=== PATIENT | male | born 1980 | race Caucasian/White ===

== ENCOUNTER 2019-12-24 14:15 | Emergency (ER) | payer OTHER, SELFPAY ==
--- NOTE | ~2019-12-24 | CT_ITS ---
EXAMINATION: CT abdomen pelvis wo con DATE: 12/24/2019 15:13 INDICATION: Right flank pain. Nausea and vomiting. TECHNIQUE: Computed tomography (CT) of the abdomen and pelvis was performed without intravenous contr ast. Automated exposure control and iterative reconstruction technique were employed. Exam dose: 105 8.76 mGy-cm total exam DLP. COMPARISON: None. FINDINGS: Small sliding hiatal hernia Hepatic steatosis. No hepatic, splenic, pancreatic or adrenal space-occupying mass lesion is evident. No renal mass lesion is detected. There is an approximately 2.5 mm right ureterovesical junction calculus with associated mild right hy droureteronephrosis and mild right perinephric stranding. There is an approximately 2.5 mm nonobstructing mid upper left renal nonobstructing calculus. No left ureteral calculus or hydroureteronephrosis. The urinary bladder, prostate gland and seminal vesicles are unremarkable. There is mild colonic diverticulosis; no CT evidence of diverticulitis. No bowel obstruction, bowel w all thickening, pneumatosis or intraperitoneal free air is detected. Normal caliber of the abdominal aorta. No intraperitoneal or retroperitoneal or pelvic mass lesion or adenopathy or ascites. Degenerative changes of the thoracic and lumbar spine including prominent degenerative disease partic ularly at L2-3 and L3-4. Transitional fifth lumbar vertebra. No suspicious osteolytic or osteoblastic lesions. IMPRESSION: 2.5 mm obstructing right ureterovesical junction calculus with mild right hydroureterone phrosis 2.5 mm nonobstructing left renal calculus Mild colonic diverticulosis Small sliding hiatal hernia Reviewed, dictated and finalized at [facility]. Reviewed, dictated and finalized at [facility]. IMPRESSION: 2.5 mm obstructing right ureterovesical junction calculus with mil d right hydroureteronephrosis 2.5 mm nonobstructing left renal calculus Mild colonic diverticulosis Small sliding hiatal hernia
[2019-12-24 14:16] VITALS: BP 170/119; PULSE 91; RESP 20; TEMP 36.8; O2SAT 100
[2019-12-24] MEDS: ONDANSETRON INJ 4 MG/2 ML VIAL IV PUSH (14:41)
[2019-12-24] MEDS: KETOROLAC 30 MG/ML VIAL (*BKC) IV PUSH (14:41)
[2019-12-24 14:49] LABS: Basophils Percent Auto 0.3 % (0.2-1.2); Eosinophils Percent Auto 0.2 % (0-4.4); Hematocrit 44.5 % (42.0-52.0); Immature Granulocyte Absolute 0.06 K/mm3 (0.00-0.031); Immature Granulocyte Percent A 0.6 % (0-0.5); Lymphocytes Absolute Auto 1.11 K/mm3 (0.9-3.2); Lymphocytes Percent Auto 10.3 % (18.3-44.2); Mean Corpuscular HGB Conc 33.7 g/dl (32-36); Mean Corpuscular Hemoglobin 28.5 pg (26-34); Mean Corpuscular Volume 84.4 fl (80-100); Mean Platelet Volume 9.9 fl (7.4-10.4); Monocytes Absolute Auto 0.5 K/mm3 (0.1-0.6); Monocytes Percent Auto 4.7 % (2.6-8.5); Neutrophils Percent Auto 83.9 % (45.5-73.1); Platelet Count Result 244 k/mm3 (150-375); Red Blood Count 5.27 M/mm3 (4.6-6.20); Red Cell Distribution Width 13.2 % (11.5-14.5); White Blood Count 10.7 K/mm3 (4.5-10.0)
[2019-12-24 14:53] LABS: Add Urine Microscopic? YES; Appearance Urine Clear (Clear); Bilirubin Urine Negative (Negative); Blood Urine 3+ (Negative); Color Urine Yellow (Yellow); Glucose Urine UA 3+ mg/dL (Negative); Ketones Urine Negative (Negative); Leukocyte Esterase Ur Negative LEU/UL (Negative); Mucus Urine Few /lpf; Nitrate Urine Negative (Negative); Protein Urine 2+ mg/dL (Negative); RBC Urine >75 /hpf (0-2); Specific Grav Ur 1.027 (1.001-1.035); Squamous Epithelial Cell Urine Rare /hpf (Few); Urobilinogen Urine Negative mg/dL (<2.0); WBC Urine 0-3 /hpf
[2019-12-24 15:00] LABS: Anion Gap 9 mmol/L (8-16); Blood Urea Nitrogen 11 mg/dL (9-20); Calcium 9.6 mg/dL (8.4-10.2); Carbon Dioxide 29 mmol/L (22-30); Chloride 99 mmol/L (98-107); Estimated Glomerular Filt Rate > 60; Glucose 249 mg/dL (75-110); Sodium 137 mmol/L (137-145)
[2019-12-24 15:07] VITALS: BP 149/92; PULSE 69; RESP 18; TEMP 36.9; O2SAT 98
--- NOTE | 2019-12-24 15:08 | PC.NURSE ---
Patient to CT at this time.
--- NOTE | 2019-12-24 15:30 | ED.NAVMDI ---
HPI - Nausea/Vomiting/Diarrhea General Chief complaint: Nausea/Vomiting/Diarrhea Stated complaint: Back pain, nausea vomiting Time Seen by Provider: 12/24/19 14:19 History of Present Illness HPI Narrative: Patient is a 39-year-old male who presents ER with right-sided flank pain. Patient had sudden onset pain as well as some nausea and vomiting. Pain is persistent since then. Mild improvement with stretching. No radiation to the abdomen or testicles. No urinary frequency urgency or dysuria. No sweats or chills. Has not had similar pain before. Concerned he may have a kidney stone. Related Data Home Medications Medication Instructions Recorded Confirmed atorvastatin 12/24/19 glipizide mg 12/24/19 meloxicam 12/24/19 metformin mg PO 12/24/19 Allergies Allergy/AdvReac Type Severity Reaction Status Date / Time No Known Allergies Allergy Verified 12/24/19 14:36 Review of Systems Review of Systems: All systems reviewed & are unremarkable except as noted in HPI and below Gastrointestinal: Gastrointestinal: Denies abdominal pain, Denies diarrhea, Reports nausea and Reports vomiting Genitourinary: Genitourinary: Denies dysuria, Denies testicular pain and Denies urinary frequency PMFSH Past Medical History Medical History (Updated 12/24/19 @ 16:57 by Samson Lucia MD) Diabetes type 2, controlled Hyperlipidemia Surgical History Surgical History (Updated 12/24/19 @ 15:32 by Samson Luica MD) Hx of tonsillectomy Family History Family History (Updated 10/05/15 @ 23:19 by DOCTOR UNKNOWN) Father Hypertension Sibling Hypertension Family history of diabetes mellitus in first degree relative Other Diabetes mellitus Family history of heart disease in male family member before age 55 Social History Social History Smoking status: Never smoker Alcohol intake: never Exam Narrative: Exam Narrative: GENERAL: Well-appearing, well-nourished, and in no acute distress. HEAD: Normocephalic, atraumatic. CHEST: Clear to auscultation. No respiratory distress. HEART: Regular rate and rhythm. Normal peripheral pulses. ABDOMEN: Soft, nontender, nondistended. BACK: No reproducible midline tenderness of thoracic or lumbar spine. There is mild paraspinal lumbar tenderness on the right. EXTREMITIES: Normal range of motion. No edema. NEURO: Alert and oriented x3. PSYCH: Normal mood and affect. Course Course Emergency Course: Pain improved with Toradol. Discharge home. Informed results. Vital Signs Vital signs: Vital Signs Temperature 98.3 F 12/24/19 14:16 Pulse Rate 91 12/24/19 14:16 Respiratory Rate 20 12/24/19 14:16 Blood Pressure 170/119 H 12/24/19 14:16 Pulse Oximetry 100 12/24/19 14:16 Temperature 98.1 F 12/24/19 16:21 Pulse Rate 87 12/24/19 16:21 Respiratory Rate 18 12/24/19 16:21 Blood Pressure 142/89 H 12/24/19 16:21 Pulse Oximetry 100 12/24/19 16:21 MDM - Nausea/Vomiting/Diarrhea Lab Data Result diagrams: 12/24/19 14:40 12/24/19 14:40 Labs: Lab Results 12/24/19 12/24/19 12/24/19 Range/Units 14:40 14:40 14:42 WBC 10.7 H (4.5-10.0) K/mm3 RBC 5.27 (4.6-6.20) M/mm3 Hgb 15.0 (14.0-18.0) g/dL Hct 44.5 (42.0-52.0) % MCV 84.4 (80-100) fl MCH 28.5 (26-34) pg MCHC 33.7 (32-36) g/dl RDW 13.2 (11.5-14.5) % Plt Count 244 (150-375) k/mm3 MPV 9.9 (7.4-10.4) fl Immature Gran % (Auto) 0.6 H (0-0.5) % Neut % (Auto) 83.9 H (45.5-73.1) % Lymph % (Auto) 10.3 L (18.3-44.2) % [place] % (Auto) 4.7 (2.6-8.5) % Eos % (Auto) 0.2 (0-4.4) % Baso % (Auto) 0.3 (0.2-1.2) % Lymph # (Auto) 1.11 (0.9-3.2) K/mm3 [place] # (Auto) 0.5 (0.1-0.6) K/mm3 Eos # (Auto) 0.0 (0-0.3) K/mm3 Baso # (Auto) 0.0 (0.0-0.1) K/mm3 Abs Immat Gran (auto) 0.06 H (0.00-0.031) K/mm3 Absolute Neuts (auto) 9.0 H (1.3-6.7) K/mm3 Absolute Nucleate
[2019-12-24 16:21] VITALS: BP 142/89; PULSE 87; RESP 18; TEMP 36.7; O2SAT 100
[2019-12-24 17:00] VITALS: BP 139/84; PULSE 75; RESP 16; TEMP 36.2; O2SAT 100
== END 2019-12-24 17:06 | disposition home or self-care (01) ==
PROVIDERS: Emergency Provider Emergency Medicine; PCP Family Medicine
DX: N13.2 Hydronephrosis with renal and ureteral calculous obstruction (principal); E11.9 Type 2 diabetes mellitus without complications; E78.5 Hyperlipidemia, unspecified; K57.90 Diverticulosis of intestine, part unspecified, without perforation or abscess without bleeding; K44.9 Diaphragmatic hernia without obstruction or gangrene; Z79.84 Long term (current) use of oral hypoglycemic drugs
CPT/HCPCS: 36415; 74176; 80048; 81001; 85025; 96374; 96375; 99284; J1885; J2405

== ENCOUNTER 2020-04-30 08:06 | Outpatient (CLI) | payer OTHER, SELFPAY ==
--- NOTE | ~2020-04-30 | XR_ITS ---
EXAMINATION: HAND-LLOYD ARTHRITIS 3+VIEWS DATE: 04/30/2020 08:38 INDICATION: Bilateral hand pain. Inability to straighten the left fifth digit. TECHNIQUE: Posteroanterior, lateral, and oblique views of the left and of the right hands as well as a ballcatchers view of both hands were obtained. COMPARISON: None. 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 Alig nment is otherwise normal at both hands. No acute fractures identified. Heterotopic ossification at t he radial side of the base of the right second proximal phalanx which could be either degenerative in etiology or sequela of old trauma. IMPRESSION: 1. 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 2. Otherwise relatively symmetric pattern of mild to moderate polyarticular osteoarthritis at the lloyd ateral hands and wrists. Reviewed, dictated and finalized at [facility] [employer] IMPRESSION: 1. 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 2. Otherwise relatively symmetric pattern of mild to moderate polyarticular ost eoarthritis at the bilateral hands and wrists.
== END 2020-04-30 08:07 ==
PROVIDERS: PCP Physician Assistant Medical; Visit Provider Physician Assistant Medical
DX: M79.641 Pain in right hand (principal); M79.642 Pain in left hand
CPT/HCPCS: 73130